=== PATIENT | male | born 1985 | race African-American/Black ===

== ENCOUNTER 2024-03-30 22:31 | Emergency (ER) | payer BC ==
[~2024-03-30 22:31] MED LIST: Iopamidol 370 76% 100 ML VIAL ONE
[2024-03-30] MEDS ORDERED: Bacitracin 1 PK ONE (23:08)
[2024-03-30] MEDS ORDERED: Boostrix 0.5 ML (Tdap) VIAL (>/=7 yrs of age) ONE (23:08)
[2024-03-30 23:10] LABS: #Basophils 0.1 thou/uL (0.0-0.2); #Eosinphils 0.1 thou/uL (0.0-0.7); #Lymphocytes 1.9 thou/uL (1.20-3.40); #Monocytes 0.5 thou/uL (0.11-0.59); #Neutrophils 3.3 thou/uL (1.40-6.50); %Eosinophils 1.1 % (0.0-10.0); %Lymphocytes 32.8 % (21.0-51.0); %Monocytes 8.9 % (0.0-10.0); %Neutrophils 56.2 % (42.0-75.0); Hematocrit 44.8 % (42.0-52.0); Mean Corpuscular HGB CONC 31.2 g/dL (32.0-36.0); Mean Corpuscular Hemoglobin 27.1 pg (27.0-31.0); Mean Platelet Volume 8.1 fL (7.4-10.4); Platelet Count 185 10x3/uL (130-400); RBC Distribution Width 12.6 % (11.5-14.5); Red Blood Cell (RBC) Count 5.15 mill/uL (4.70-6.10); White Blood Cell (WBC) Count 5.8 10x3/uL (4.8-10.8)
[2024-03-30 23:20] LABS: PTT 28.2 sec (22.9-36.1)
[2024-03-30 23:25] LABS: ALT (SGPT) 29 U/L (8-55); AST (SGOT) 47 U/L (5-34); Albumin 3.7 g/dL (3.5-5.0); Alkaline Phosphatase 60 U/L (40-110); Anion Gap 17 mmol/L (10-20); BUN (Urea Nitrogen) 12 mg/dL (8.9-20.6); Bilirubin, Total 0.2 mg/dL (0.2-1.2); Calc. Creatinine Clearance 0 mL/min (70-130); Calcium 9.2 mg/dL (7.8-10.44); Carbon Dioxide 18 mmol/L (22-29); Chloride 107 mmol/L (98-107); Estimated GFR 94; Globulin 5.3 g/dL (2.4-3.5); Glucose 91 mg/dL (70-105); Potassium 5.6 mmol/L (3.5-5.1); Sodium 136 mmol/L (136-145)
[2024-03-31] MEDS ORDERED: Ondansetron PF 4 MG/2 ML Vial ONE (00:18)
[2024-03-31] MEDS ORDERED: Morphine 2 MG/ML VIAL ONE (00:18)
[2024-03-31] MEDS ORDERED: Bacitracin 1 PK ONE (00:30)
== END 2024-03-31 00:42 | disposition home or self-care (01) ==
LOC: NAV ERS 22:31
DX: S01.01XA Laceration without foreign body of scalp, initial encounter (principal); T24.212A Burn of second degree of left thigh, initial encounter; T31.0 Burns involving less than 10% of body surface; R03.0 Elevated blood-pressure reading, without diagnosis of hypertension; Z23 Encounter for immunization; V32.5XXA Driver of three-wheeled motor vehicle injured in collision with two- or three-wheeled motor vehicle in traffic accident, initial encounter
CPT/HCPCS: 12001; 70450; 71260; 72125; 74177; 80053; 85025; 85610; 85730; 90471; 90715; 96374; 96375; J2272; J2405; Q9967